=== PATIENT | female | born 1980 | race Caucasian/White ===

== ENCOUNTER 2018-01-01 11:38 | Emergency (ER) | payer OTHER ==
[~2018-01-01] VITALS: Ht 167.6 cm; Wt 79.0 kg
[2018-01-01 12:05] VITALS: BP 145/93
[2018-01-01] MEDS ORDERED: CIPR2.5D18 LEFTEYE (12:35)
[2018-01-01] MEDS ORDERED: CIPR2.5D18 RIGHTEYE (12:35)
== END 2018-01-01 12:43 | disposition home or self-care (01) ==
LOC: ER 11:39
DX: H10.9 Unspecified conjunctivitis (principal); F17.200 Nicotine dependence, unspecified, uncomplicated; H53.121 Transient visual loss, right eye
CPT/HCPCS: 99283